=== PATIENT | female | born 1990 | race Caucasian/White ===

== ENCOUNTER → 2020-06-05 10:34 | Outpatient (BNVA) | payer MEDICAID, SELFPAY | PROVIDERS: Family Provider Family Medicine; Visit Provider Registered Nurse | DX: E07.9 Disorder of thyroid, unspecified (principal) | CPT/HCPCS: 84443; 85025 ==

== ENCOUNTER → 2020-09-15 08:55 | Outpatient (BNVA) | payer MEDICAID, SELFPAY | PROVIDERS: Family Provider Family Medicine; Visit Provider Nurse Practitioner Psychiatric/Mental Health | DX: F43.12 Post-traumatic stress disorder, chronic (principal); F33.2 Major depressive disorder, recurrent severe without psychotic features; F12.20 Cannabis dependence, uncomplicated; Z03.89 Encounter for observation for other suspected diseases and conditions ruled out | CPT/HCPCS: 99214 ==

== ENCOUNTER → 2020-10-13 08:22 | Outpatient (BNVA) | payer MEDICAID, SELFPAY | PROVIDERS: Family Provider Family Medicine; Visit Provider Nurse Practitioner Psychiatric/Mental Health | DX: F43.12 Post-traumatic stress disorder, chronic (principal); F33.1 Major depressive disorder, recurrent, moderate; F12.20 Cannabis dependence, uncomplicated | CPT/HCPCS: G0463 ==

== ENCOUNTER → 2020-11-17 08:24 | Outpatient (BNVA) | payer MEDICAID, SELFPAY | PROVIDERS: Family Provider Family Medicine; Visit Provider Nurse Practitioner Psychiatric/Mental Health | DX: F43.12 Post-traumatic stress disorder, chronic (principal); F12.20 Cannabis dependence, uncomplicated; F33.1 Major depressive disorder, recurrent, moderate | CPT/HCPCS: 99212 ==

== ENCOUNTER → 2020-12-22 09:54 | Outpatient (BNVA) | payer MEDICAID, SELFPAY | PROVIDERS: Family Provider Family Medicine; Visit Provider Nurse Practitioner Psychiatric/Mental Health | DX: F43.12 Post-traumatic stress disorder, chronic (principal); F12.20 Cannabis dependence, uncomplicated; F33.1 Major depressive disorder, recurrent, moderate; F15.10 Other stimulant abuse, uncomplicated | CPT/HCPCS: 99213 ==

== ENCOUNTER → 2021-02-01 07:38 | Outpatient (BNVA) | payer MEDICAID, SELFPAY | PROVIDERS: Family Provider Family Medicine; Visit Provider Nurse Practitioner Psychiatric/Mental Health | DX: F43.12 Post-traumatic stress disorder, chronic (principal); F12.20 Cannabis dependence, uncomplicated; F33.1 Major depressive disorder, recurrent, moderate; F15.10 Other stimulant abuse, uncomplicated | CPT/HCPCS: 99214 ==

== ENCOUNTER → 2021-06-21 07:36 | Outpatient (BNVA) | payer MEDICAID, SELFPAY | PROVIDERS: Family Provider Family Medicine; Visit Provider Nurse Practitioner Psychiatric/Mental Health | DX: F43.12 Post-traumatic stress disorder, chronic (principal); F12.20 Cannabis dependence, uncomplicated; F33.1 Major depressive disorder, recurrent, moderate; F15.10 Other stimulant abuse, uncomplicated | CPT/HCPCS: 99214 ==

== ENCOUNTER → 2021-07-26 07:49 | Outpatient (BNVA) | payer MEDICAID, SELFPAY | PROVIDERS: Family Provider Family Medicine; Visit Provider Nurse Practitioner Psychiatric/Mental Health | DX: F43.12 Post-traumatic stress disorder, chronic (principal); F33.1 Major depressive disorder, recurrent, moderate; F12.20 Cannabis dependence, uncomplicated; F15.10 Other stimulant abuse, uncomplicated | CPT/HCPCS: 99213 ==

== ENCOUNTER → 2021-09-21 08:30 | Outpatient (BNVA) | payer MEDICAID, SELFPAY | PROVIDERS: Family Provider Family Medicine; Visit Provider Nurse Practitioner Psychiatric/Mental Health | DX: F43.12 Post-traumatic stress disorder, chronic (principal); F33.1 Major depressive disorder, recurrent, moderate; F15.10 Other stimulant abuse, uncomplicated; F12.20 Cannabis dependence, uncomplicated | CPT/HCPCS: 99213 ==

== ENCOUNTER → 2024-01-19 09:20 | Outpatient (BNVA) | payer MEDICAID, SELFPAY | PROVIDERS: Family Provider Family Medicine; PCP Registered Nurse; Visit Provider Nurse Practitioner Women's Health | DX: Z12.4 Encounter for screening for malignant neoplasm of cervix (principal) | CPT/HCPCS: 87624 ==

== ENCOUNTER → 2024-02-26 08:15 | Outpatient (BNVA) | payer MEDICAID, SELFPAY | PROVIDERS: Family Provider Family Medicine; PCP Registered Nurse; Visit Provider Obstetrics & Gynecology | DX: R87.619 Unspecified abnormal cytological findings in specimens from cervix uteri (principal) | CPT/HCPCS: 81025; 88305 ==

== ENCOUNTER 2024-06-11 09:48 | Day surgery (SDC) | payer MEDICAID, SELFPAY ==
[2024-06-03 10:47] LABS: Basophils # 0.1 10^3/uL (0.0-0.1); Basophils % 0.6 %; Eosinophils # 0.2 10^3/uL (0.0-0.8); Eosinophils % 2.3 %; Hematocrit 40.7 % (36-47); Lymphocytes # 2.6 10^3/uL (0.8-4.8); Lymphocytes % 29.3 %; Mean Corpuscular HGB Conc 33.2 g/dL (30-55); Mean Corpuscular Hemoglobin 28.5 pg (27-33); Mean Corpuscular Volume 85.9 fl (85-98); Mean Platelet Volume 9.8 fL (7.4-10.4); Monocytes # 0.5 10^3/uL (0.2-0.9); Neutrophils # 5.55 10^3/uL (1.8-7.7); Neutrophils % 61.5 %; Nucleated Red Blood Cells % 0 %; Platelet Count 307 10^3/cmm (157-399); Red Blood Count 4.74 10^6/uL (3.85-5.65); Red Cell Distribution Width 12.8 % (12.1-15.1); White Blood Count 9.02 10^3/uL (3.29-11.43)
[2024-06-03 10:52] LABS: OR HCG Qualitative Urine Negative (Negative)
[2024-06-03 11:03] LABS: Alanine Aminotransferase 19 U/L (0-33); Alkaline Phosphatase 66 U/L (35-105); Anion Gap 13.6 (5-19); Aspartate Amino Transferase 20 U/L (0-32); Blood Urea Nitrogen 16 mg/dL (6-20); Carbon Dioxide 24 mmol/L (22-29); Chloride 104 mmol/L (98-107); Globulin 3.3 g/dL (1.3-4.6); Glomerular Filtration Rate 81.6 mL/min (90-130); Glucose 107 mg/dL (65-115); Osmolality Calculated 286 mOsm/kg (285-295); Potassium 4.6 mmol/L (3.5-5.1); Sodium 137 mmol/L (136-145); Total Bilirubin 0.2 mg/dL (0.15-1.2); Total Protein 7.3 g/dL (6.6-8.7)
[2024-06-03 11:04] LABS: Add Urine Microscopic? YES; Bacteria Urine 2+ /hpf; Bilirubin Urine Neg (Negative); Blood Urine 2+ (Negative); Glucose Urine UA Norm (Normal); Ketones Urine Negative (Negative); Leukocyte Esterase Urine 2+ (Negative); Nitrate Urine Negative (Negative); Protein Urine Neg (Negative); RBC Urine 0-4 /hpf (0-2); Specific Gravity, Urine 1.015 (1.005-1.030); Squamous Epithelial Cell Urine 0-4 /hpf (0-5); Urine Appearance Slightly Cloudy (CLEAR); Urine Color Yellow (Yellow); Urobilinogen Urine Norm (Negative); pH Urine 5 (5-7)
[2024-06-03 11:05] LABS: Add Urine Culture? Yes
[2024-06-11] VITALS (11 sets, daily range): BP systolic 91–145; BP diastolic 65–94; PULSE 58–95; RESP 14–18; TEMP 36.1–36.4; O2SAT 94–100; BMI 37.2
[2024-06-11] MEDS: sodium chloride 0.9% 1,000 ML 30 ML IV (10:13)
[2024-06-11] MEDS: scopolamine 1.5 Patch 1 PATCH TRANSDERMA (10:16)
--- NOTE | 2024-06-11 10:20 | P.ANESASSM_ITS ---
Pre-Anesthetic Assessment Height/Weight: Height 1.6 m Weight 95.254 kg Temp Pulse Resp BP Pulse Ox O2 Del Method 97.6 F 66 18 145/94 95 Room Air 06/11/24 10:02 06/11/24 10:02 06/11/24 10:02 06/11/24 10:16 06/11/24 10:02 06/11/24 10:02 Preop Diagnosis: endometrial polyp Operation Date: 06/11/24 11:30 Proposed Procedures p Hysteroscopy, Dilation & Curettage w/ Myosure 90817, 19443, N84.0(Not Applicable) - Shade Castañeda MD Familial anesthetic complications: None Was Beta Alexandra taken within 24 hours: N/A Was Clonidine taken within 24 hours: N/A Last intake: Intake Last Liquid Date 06/10/24 Last Liquid Time 23:39 Last Solid Date 06/10/24 Last Solid Time 21:30 Social Tobacco (last smoked 1 week ago) and No alcohol marijuana use Exam alert, oriented x 3, clear to auscultation bilaterally and regular rate & rhythm Airway Mallampati: Class II Dentition: false Metabolic Morbid Obesity Anesthetic Plan ASA status: 2 Anesthesia: General Risk of > 500 ml blood loss (7ml/kg in children): No Medications/Allergies Home Medications Medication Instructions Recorded Confirmed Last Taken Type levonorgestrel 21 mcg/24 hr (up to 1 device intrauterine ONCE 10/12/20 06/11/24 Unknown History 8 years) 52 mg intrauterine device (Mirena) Allergies Allergy/AdvReac Type Severity Reaction Status Date / Time No Known Allergies Allergy Verified 06/03/24 07:58 Current Medications Generic Name Dose Route Start Last Admin Trade Name Freq PRN Reason Stop Dose Admin Sodium Chloride 1,000 mls @ 30 mls/hr 06/11/24 10:00 06/11/24 10:13 Sodium Chloride 0.9% IV 06/12/24 09:59 30 mls/hr .Q24H ISABEL Administration PFSH Anesthesia Medical History Gastroenteritis Major depressive disorder, recurrent, moderate MDD (major depressive disorder), recurrent severe, without psychosis Chronic post-traumatic stress disorder (PTSD) Surgical History Hx of foot surgery plate in right foot Family History Mother Thyroid disease Grandmother Thyroid disease Denies family history of Colon cancer Ovarian cancer Prostate cancer Diabetes Heart disease Hyperlipidemia Breast cancer Hypertension Uterine cancer Stroke Social History Smoking and tobacco/nicotine status: current every day tobacco/nicotine user Data Anesthesia 06/03/24 10:23 06/03/24 10:23 Cardiac Studies: 2 No Data to Display
[2024-06-11] MEDS: ceFAZolin 2,000 mg SDV 2000 MG IVP (10:26)
--- NOTE | 2024-06-11 11:26 | W.PM.OPSUD ---
Surgery/Procedure H&P Update DATE OF PROCEDURE: June 11, 2024 DATE H&P PERFORMED: 06/03/24 H&P UPDATE INFORMATION: I have reviewed H&P completed within last 30 days, I have examined patient prior to procedure and No changes to prior documentation PREOP DIAGNOSIS: endometrial polyp PLANNED PROCEDURE: Operation Date: 06/11/24 11:30 Proposed Procedures p Hysteroscopy, Dilation & Curettage w/ Myosure 43212, 12687, N84.0(Not Applicable) - Shade Castañeda MD
[2024-06-11] MEDS: lidocaine-epi 2% PF 1:200,000 20 mL SDV XX (12:07)
--- NOTE | 2024-06-11 12:21 | PM.OP ---
Operative Report Date of procedure: June 11, 2024 Pre-op diagnosis: Endometrial polyp Active equal squamous cells cannot exclude high Post-op diagnosis: same Procedure done: Hysteroscopy and D&C via MyoSure Specimens removed/disposition: Endometrial curettings Surgeon: Shade Castañeda MD Estimated blood loss (mL): 5 IV fluids (mL): 1,000 Complications: None Procedure: After informed consent, the risks included but were not limited to bleeding, infection, injury to internal organs. The patient was counseled on a possible laparotomy and on the potential need for hysterectomy. The patient expressed understanding of the risks involved, all questions were answered, and the patient consented to the procedure. The patient was taken to the operating room where general anesthesia was administered. She was placed in the dorsal lithotomy position and prepped and draped in sterile fashion. A time out procedure was performed. The patient was examined under anesthesia and found to have a normal uterus with normal adnexa. A sterile weight speculum was placed in the vagina. The uterus was then gently sounded to 7 cm, and the cervix was dilated. The 0 degrees MyoSure hysteroscope was advanced gently to the uterine fundus while visualizing the monitor. Survey of the uterine cavity showed: Proliferative endometrium, the fundus shows normal proliferative endometrium; left ostium was visualized, and lateral wall with proliferative endometrium; right ostium visualized, and lateral wall with proliferative endometrium; anterior and posterior washburn are with proliferative endometrium; endocervical canal is normal. The MyoSure device was advanced and the direct visualization the endometrium was morcellated without complication. At the end of morcellation the fluid deficit was 105 mL and was estimated at approximately 50 mL were on the floor. There was minimal bleeding noted and the tenaculum removed with goad hemostasis noted. The patient tolerated the procedure well. The patient was taken to the recovery area in stable condition.
--- NOTE | 2024-06-11 12:22 | SUR.OPER ---
iud removed intact placed in biohazard.
--- NOTE | 2024-06-11 13:35 | ANE.PACU2 ---
Inpatient post-anesthesia follow up: Airway intact: Yes Vital signs: Temperature 97.4 F Pulse Rate 59 Respiratory Rate 18 Blood Pressure 137/90 Pulse Oximetry 99 Oxygen Delivery Me thod Room Air Oxygen Flow Rate Fraction of Inspir ed Oxygen Hydration adequate: Yes Nausea and vomiting: No Pain level: 1 Mental status: Baseline
== END 2024-06-11 13:37 | disposition home or self-care (01) ==
PROVIDERS: PCP Registered Nurse; Visit Provider Obstetrics & Gynecology
PROC: 0UDB8ZZ Extraction of Endometrium, Via Natural or Artificial Opening Endoscopic (ICD-10-PCS; CPT 58558; principal; 2024-06-11 11:20)
PROC: 0UPD8HZ Removal of Contraceptive Device from Uterus and Cervix, Via Natural or Artificial Opening Endoscopic (ICD-10-PCS; CPT 58301; 2024-06-11 11:20)
DX: R87.611 Atypical squamous cells cannot exclude high grade squamous intraepithelial lesion on cytologic smear of cervix (ASC-H) (principal); E66.01 Morbid (severe) obesity due to excess calories; Z68.37 Body mass index [BMI] 37.0-37.9, adult; F17.290 Nicotine dependence, other tobacco product, uncomplicated
CPT/HCPCS: 58558; 36415; 80053; 81001; 81025; 85025; 86850; 86900; 87086; 88305; J0690; J1100; J1885; J2250; J2405; J2704; J3010; J3490; J7030

== ENCOUNTER → 2024-07-26 11:01 | Outpatient (BNVA) | payer MEDICAID, SELFPAY | PROVIDERS: PCP Registered Nurse; Visit Provider Obstetrics & Gynecology | DX: Z30.431 Encounter for routine checking of intrauterine contraceptive device (principal) | CPT/HCPCS: 81025 ==

== ENCOUNTER → 2025-10-10 12:38 | Outpatient (BNVA) | payer BC, MEDICAID, SELFPAY | PROVIDERS: PCP Nurse Practitioner Family; Visit Provider Obstetrics & Gynecology | DX: R87.619 Unspecified abnormal cytological findings in specimens from cervix uteri (principal) | CPT/HCPCS: 87624 ==

== ENCOUNTER 2025-10-22 13:22 | Outpatient (CLI) | payer BC, MEDICAID, SELFPAY ==
--- NOTE | 2025-10-22 13:30 | USR_ITS ---
PROCEDURE INFORMATION: Exam: US Pelvis, Complete, Non-Obstetric Exam date and time: 10/22/2025 1:30 PM Age: 35 years old Clinical indication: Abnormal findings; Abnormal lab test; Other; - unspecified abnormal cytological findings in sp. . . , ; Additional info: R87.619 - unspecified abnormal cytological findings in sp. . . , TECHNIQUE: Imaging protocol: Transabdominal pelvic nonobstetric ultrasound. Complete exam. Real time ultrasound with image documentation. COMPARISON: No relevant prior studies available. FINDINGS: Uterus: The uterus measures 7.0 x 3.1 x 4.0 cm. Myometrium appears heterogeneous. No discrete myometrial mass. Intrauterine device in place and centrally located within the endometrial canal. Endometrial thickness near the fundus measures up to 4 mm which is within normal limits. No endometrial mass or fluid collection identified. Right ovary/adnexa: Right ovary measures 2.4 x 1.7 x 2.1 cm. Numerous small cysts or follicles are present. No suspicious adnexal mass. Color and Doppler imaging of the right ovary performed. Arterial and venous flow is documented. Left ovary/adnexa: Left ovary measures 1.4 x 1.8 x 2.0 cm. There are a few small cysts or follicles present within the left ovary. Color and Doppler imaging of the left ovary demonstrates normal arterial and venous flow. No adnexal mass. Intraperitoneal space: No free fluid Urinary bladder: Not visualized on this exam. US/US pelvic complete* [id number] IMPRESSION: 1. Unremarkable pelvic ultrasound. No acute findings. 2. Intrauterine device in place and centrally located within the endometrial canal.
== END 2025-10-22 13:23 | disposition home or self-care (01) ==
LOC: RAD 13:22
PROVIDERS: PCP Nurse Practitioner Family; Visit Provider Obstetrics & Gynecology
DX: R87.619 Unspecified abnormal cytological findings in specimens from cervix uteri (principal); Z97.5 Presence of (intrauterine) contraceptive device; N83.292 Other ovarian cyst, left side
CPT/HCPCS: 76856

== ENCOUNTER → 2025-10-28 08:02 | Outpatient (BNVA) | payer BC, MEDICAID, SELFPAY | PROVIDERS: PCP Nurse Practitioner Family; Visit Provider Obstetrics & Gynecology | DX: Z86.19 Personal history of other infectious and parasitic diseases (principal) | CPT/HCPCS: 81025; 88305 ==